=== PATIENT | male | born 1985 | race Caucasian/White ===

== ENCOUNTER 2020-05-11 13:48 | Inpatient (IN) | payer OTHER ==
[~2020-05-11] VITALS: Ht 193 cm; Wt 129.3 kg
[2020-05-11 13:58] VITALS: BP 154/105
[2020-05-11 14:17] LABS: HEMATOCRIT 51.4 % (42.0-52.0); HEMOGLOBIN 17.6 gm/dL (14.0-18.0); MCH 29.5 pg (26.0-34.0); MCHC 34.3 g/dL (28.0-37.0); MCV 85.9 fL (80.0-100.0); MPV 7.3 fl. (7.2-11.1); NUCLEATED RBCS 0 /100WBC; PLATELET COUNT* 368 thou/uL (150-400); RBC 5.98 mil/uL (4.50-6.00); RDW-CV 13.2 % (10.5-14.5); WBC 13.5 thou/uL (4.0-11.0)
[2020-05-11 14:20] LABS: URINE BILIRUBIN NEGATIVE (Negative); URINE BLOOD TRACE (Negative); URINE CLARITY CLEAR; URINE COLOR YELLOW; URINE GLUCOSE-RANDOM NEGATIVE (Negative); URINE KETONES NEGATIVE (Negative); URINE LEUKOCYTES-REFLEX NEGATIVE (Negative); URINE NITRITE-REFLEX NEGATIVE (Negative); URINE PROTEIN TRACE (Negative); URINE UROBILINOGEN 0.2 E.U./dl (0.2-1.0)
[2020-05-11 14:24] LABS: CALCIUM 9.1 mg/dL (8.5-10.1); CREATININE 1.1 mg/dL (0.6-1.3); POTASSIUM 3.9 mmol/L (3.5-5.1)
[2020-05-11 14:34] LABS: ALBUMIN 4.3 g/dL (3.4-5.0); TOTAL BILIRUBIN 0.8 mg/dL (<0.1-1.0); TOTAL PROTEIN 9.6 g/dL (6.4-8.2)
[2020-05-11 15:05] LABS: ABSOLUTE EOSINOPHILS 0.1 thou/uL (0.0-0.7); ABSOLUTE LYMPHOCYTES 0.5 thou/uL (0.8-5.3); ABSOLUTE MONOCYTES 0.9 thou/uL (0.0-1.2); ABSOLUTE NEUTROPHILS 11.9 thou/uL (1.6-8.1)
[2020-05-11 15:06] LABS: LARGE PLATELETS RARE; PLATELET ESTIMATE ADEQUATE
--- NOTE | 2020-05-11 16:44 | EKG ---
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[place] : 1985 Requested By: Diana Donaldson Order Number: [id number] MD: Xu Armijo Measurements Intervals [place] Rate: 92 P: 20 DC: 161 QRS: 58 QRSD: 91 T: 9 QT: 361 QTc: 447 Interpretive Statements Sinus rhythm nonspecific st segment changes Probable left atrial enlargement No previous ECG available for comparison Electronically Signed On 05-11-2020 16:44:23 [employer] DIRECT[employer] by Xu Armijo [email or web address] <ELECTRONICALLY SIGNED> By: Xu Armijo MD, [facility] 05/11/20 1644 142 1422 Xu Armijo MD, FACC /EPI
[2020-05-11 22:37] VITALS: BP 123/63
[2020-05-12] VITALS (7 sets, daily range): BP systolic 109–143; BP diastolic 58–88
[2020-05-12 09:10] LABS: HEMATOCRIT 40.5 % (42.0-52.0); MCH 29.5 pg (26.0-34.0); MCHC 34.5 g/dL (28.0-37.0); MCV 85.5 fL (80.0-100.0); RBC 4.74 mil/uL (4.50-6.00); WBC 7.8 thou/uL (4.0-11.0)
[2020-05-12 09:24] LABS: CALCIUM 7.5 mg/dL (8.5-10.1); POTASSIUM 3.4 mmol/L (3.5-5.1)
[2020-05-12 09:28] LABS: MAGNESIUM 1.8 mg/dL (1.8-2.4); PHOSPHORUS* 2.7 mg/dL (2.5-4.9); TOTAL BILIRUBIN 0.9 mg/dL (<0.1-1.0); TOTAL PROTEIN 6.9 g/dL (6.4-8.2)
--- NOTE | 2020-05-12 17:15 | NUR ---
TRANSFERED FROM . VIA BED INSTABLE CONDITION. A&OX 4, PWD. LUNGS CLEAR, HEART TONES REGULAR, +BS X 4 QUADS. DRINKING WATER FROM GI LAB. AT BEDSIDE.
--- NOTE | 2020-05-12 18:50 | NUR ---
A&OX 4, UP AD RAS IN ROOM WITH STEADY GAIT. IV NS AT 150MLS/HR RIGHT AC. EATING REGULAR DIET. CALF SCD'S ON CYN LEGS. NO C/O PAIN. CYST ON LEFT BACK. PICTURE TAKEN AND PUT IN CHART. CALL LIGHT WITHIN REACH. WILL CONTINUE TO MONITOR.
[2020-05-13 00:22] VITALS: BP 117/73
[2020-05-13 05:52] LABS: HEMATOCRIT 37.3 % (42.0-52.0); HEMOGLOBIN 12.9 gm/dL (14.0-18.0); MCH 29.7 pg (26.0-34.0); MCHC 34.7 g/dL (28.0-37.0); MCV 85.6 fL (80.0-100.0); MPV 7.3 fl. (7.2-11.1); RBC 4.36 mil/uL (4.50-6.00); RDW-CV 12.8 % (10.5-14.5); WBC 6.4 thou/uL (4.0-11.0)
[2020-05-13 06:09] LABS: ALBUMIN 2.8 g/dL (3.4-5.0); CREATININE 0.8 mg/dL (0.6-1.3); POTASSIUM 3.4 mmol/L (3.5-5.1); TOTAL BILIRUBIN 0.6 mg/dL (<0.1-1.0); TOTAL PROTEIN 6.4 g/dL (6.4-8.2)
[2020-05-13] MEDS ORDERED: OMEPRAZOLE40 MG PO (08:00)
[2020-05-13] MEDS ORDERED: ZOFRAN ODT4 MG PO (08:00)
[2020-05-13] MEDS ORDERED: AUGMENTIN 500-1 EACH PO (08:02)
[2020-05-13 08:10] VITALS: BP 134/81
[2020-05-13 11:40] VITALS: BP 134/81
[2020-05-13 12:05] VITALS: BP 134/81
--- NOTE | 2020-05-13 12:05 | NUR ---
PATIENT DISCHARGED FROM UNIT AT 1200. ALERT AND ORIENTED X 4. VITAL SIGNS STABLE ON ROOM AIR. UP INDEPENDENTLY AND AMBULATING IN ROOM. IV DISCONTINUED. DENIES PAIN AND NAUSEA. DISCHARGE INSTRUCTIONS, MEDICATION INFORMATION, AND SCRIPTS GIVEN TO PATIENT. LEFT WITH ALL BELONGINGS. PATIENT LEFT WITH SIGNIFICANT OTHER VIA CAR.
--- NOTE | 2020-05-16 17:06 | PATH ---
[facility] [address] [place] [address] PATHOLOGY RPT PROCEDURE Name: LATOSHA YANEZ Room: [address] IN M.R.#: [id number] Admission: 05/11/20 Date of : 83 Discharge: 05/13/20 Report #: [id number] Path Case #: [id number] [facility] Accession Number: [id number] . 01 Material submitted: . stomach - GASTRIC BIOPSY . 01 Clinician provided ICD-10: A41.9 K52.1 . 01 Clinical history: . PNEUOBILIA, ABDOMINAL PAIN, N/V/D, TACHYCARDIA . 02 Diagnosis: Gastric biopsy: - Superficial fresh hemorrhage in otherwise normal gastric mucosa. (JEANNIE:pit 05/16/2020) . Special stain: H. pylori immuno QTP 05/16/2020 1347 Local . 02 Electronically signed: . Jose Martinez MD, Pathologist NPI- [id number] . 01 Gross description: . Received in formalin labeled "Latosha Yanez, gastric biopsy" are multiple garay-brown soft tissue fragments measuring in aggregate 0.6 x 0.5 x 0.1 cm. The specimen is submitted entirely in A1. ([facility]; 05/14/2020) [facility] 05/14/2020 0948 Local . 02 Pathologist provided ICD-10: K92.2 . 02 CPT . 074035, [id number] Specimen Comment: A courtesy copy of this report has been sent to [phone] Specimen Comment: [phone] Specimen Comment: Report sent to / DR ROSSI Performed at: [address], [place] [id number] MD Yasir Jones MD Phone: [phone] Performed at: 02 [facility] [address] [place], [place] [id number] [address] [address] PATHOLOGY RPT PROCEDURE Name: LATOSHA YANEZ Room: [address] M.R.#: [id number] Admission: 05/11/20 Date of : 83 Discharge: 05/13/20 Report #: [id number] Path Case #: [id number] MD Jose Martinez MD Phone: [phone]
--- NOTE | 2020-05-31 12:30 | CON ---
[address] [address] CONSULTATION Name: LATOSHA YANEZ Room: [address] IN M.R.#: [id number] Admission: 05/11/20 Attend Phys: Crystal Lawrence Discharge: 05/13/20 Date of : 83 Report #: [id number] THIS REPORT FOR: cc: FAM - No family physician/PCP FAM - No family physician/PCP ~ Luther Maciel MD He is being seen today for chief complaint of nausea, vomiting, diarrhea, abdominal pain over the last couple of days. HISTORY OF PRESENT ILLNESS: He is a 34-year-old male patient who presented to the Emergency Department after 3 days of upper abdominal pain, nausea, vomiting and diarrhea. His diarrhea began on Saturday and was associated with upper abdominal pain. He reports approximately 6-7 diarrhea bowel movements over the last 2 days. He had also vomited twice at home prior to arrival to the Emergency Department. He said his pain was so bad that it would double him over. He does deny that he has had any blood in his stool, fever, chills, hematemesis, recent antibiotic use, contact with anyone sick, or recent foreign travel. PAST MEDICAL HISTORY: He denies any previous medical or surgical problems. FAMILY HISTORY: He has no known family history of Crohn's, colitis, gastroenteritis, irritable bowel disease, colon cancer, or any female cancers. He does not know his mother's family history due to lack of records as she was adopted. SOCIAL HISTORY: He denies illicit drug use, smoking, and only has occasional alcohol use. ALLERGIES: He has no known allergies. REVIEW OF SYMPTOMS: A 12-point review of systems is otherwise negative except as in the HPI. PHYSICAL EXAMINATION: CARDIAC: Rate and rhythm are normal and within defined parameters. LUNGS: He was clear bilaterally in all lung islas. ABDOMEN: His abdomen is soft, nontender, no rigidity, no guarding. LABORATORY DATA: White blood cell count 7.8, BUN 10, creatinine 1.1, GFR 76, total bilirubin 0.8, AST 15, ALT 30, alkaline phosphatase 93, lipase 123, hemoglobin 17.6, platelets 368. IMAGING: CT performed yesterday showed there were few branching pockets of gas in the liver. These were generally peripheral in location, [place] [address] CONSULTATION Name: LATOSHA YANEZ Room: [address] IN .R.#: [id number] Admission: 05/11/20 Attend Phys: Crystal Lawrence Discharge: 05/13/20 Date of : 83 Report #: [id number] for portal venous gas. It is also said that there appeared to be pneumatosis within the wall of the lesser curvature of the stomach. He also had findings of abnormal fluid distention of the small bowel and large bowel compatible with enteritis. IMPRESSION: 1. Abdominal pain. 2. Nausea and vomiting. 3. Diarrhea. 4. Possible pneumatosis on CT. 5. Possible enteritis. PLAN: 1. Continue the patient n.p.o. 2. EGD to be performed today by Dr. Maciel. 3. Continue antibiotic therapy for possible enteritis as per primary care physician. Thank you for allowing us to participate in the consultation for this nice 34-year-old male. Additional workup pending results of EGD. Please feel free to contact us with any other needs during this hospital stay. 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 Since his symptoms are improving, I suspect he will get better with conservative management. I would recommend EGD for endoscopic evaluation. I agree with the assessment and plan above by Pavithra Beasley otherwise. <ELECTRONICALLY SIGNED> By: Luther Maciel MD 05/31/20 1230 1140 1201Luther Maciel MD /nt
== END 2020-05-13 12:00 | disposition home or self-care (01) | DRG 871 ==
LOC: M.ERS 13:48 → M.TBA-ER 17:28 → M.3W 05-12 17:12
PROVIDERS: Internal Medicine; Nurse Practitioner Family; ADMIT Internal Medicine; ATTEND Internal Medicine
PROC: 0DB68ZX Excision of Stomach, Via Natural or Artificial Opening Endoscopic, Diagnostic (ICD-10-PCS; principal; 2020-05-12)
DX: A41.9 Sepsis, unspecified organism (principal); K25.4 Chronic or unspecified gastric ulcer with hemorrhage; K52.1 Toxic gastroenteritis and colitis; K83.8 Other specified diseases of biliary tract; R14.3 Flatulence; E66.9 Obesity, unspecified; K66.8 Other specified disorders of peritoneum; E86.9 Volume depletion, unspecified; E87.6 Hypokalemia; Z20.828 Contact with and (suspected) exposure to other viral communicable diseases; Z68.34 Body mass index [BMI] 34.0-34.9, adult